=== PATIENT | male | born 1965 | race Caucasian/White ===

== ENCOUNTER → 2018-08-14 | Day surgery (SDC) | payer OTHER ==
[~2018-08-14] MED LIST: ALBUTEROL SULFATE 2.5 MG/3 ML NEBU. NEB PRN; ATROPINE 0.5 MG/5 ML DISP.SYRIN. IV PRN; IV RINGERS SOLUTION,LACTATED 1,000 ML IV SCH; LIDOCAINE 2% PF Vial for OR 5 ML VIAL. ONE; NALOXONE 0.4 MG/ML VIAL. IV PRN; OMEP20TA63 PO; ONDANSETRON PF 4 MG/2 ML VIAL. IV PRN; PROPOFOL 10,000 MCG/ML (20ML) VIAL IV ONE; PROPOFOL 40 ML IV ONE; SIMV10TA PO; VALS40TA2 PO
[2018-08-14 14:15] VITALS: BP 108/80
== END | disposition home or self-care (01) ==
LOC: SURG 11:55
PROVIDERS: ATTEND Surgery
DX: Z12.11 Encounter for screening for malignant neoplasm of colon (principal); K63.89 Other specified diseases of intestine; I10 Essential (primary) hypertension; K21.9 Gastro-esophageal reflux disease without esophagitis; E89.0 Postprocedural hypothyroidism; Z88.0 Allergy status to penicillin; Z88.2 Allergy status to sulfonamides; Z79.899 Other long term (current) drug therapy; Z98.890 Other specified postprocedural states
CPT/HCPCS: 45378; J2704; J2001

== ENCOUNTER 2021-02-19 14:20 | Emergency (ER) | payer OTHER ==
[~2021-02-19] VITALS: Ht 177.8 cm; Wt 95.4 kg
[~2021-02-19 14:20] MED LIST changes: -ALBUTEROL SULFATE 2.5 MG/3 ML NEBU. NEB PRN; -ATROPINE 0.5 MG/5 ML DISP.SYRIN. IV PRN; -IV RINGERS SOLUTION,LACTATED 1,000 ML IV SCH; -LIDOCAINE 2% PF Vial for OR 5 ML VIAL. ONE; -NALOXONE 0.4 MG/ML VIAL. IV PRN; -ONDANSETRON PF 4 MG/2 ML VIAL. IV PRN; -PROPOFOL 10,000 MCG/ML (20ML) VIAL IV ONE; -PROPOFOL 40 ML IV ONE
--- NOTE | 2021-02-19 14:56 | PHYS DOC ---
Past History Past Medical History: A-Fib, GERD, Hypertension Past Surgical History: Other Additional Past Surgical Histo: skin graft, parathyroid, left thumb Alcohol Use: Occasionally Adult General Chief Complaint Chief Complaint: Palpitations HPI HPI Patient is a 55-year-old male presenting for palpitations. This is an acute on chronic issue. Reports he really started to become symptomatic for the last 2 or 3 weeks. Symptoms are mostly present at night, patient is unsure if he notices this more when he is not physically active and at the end of his day or not. Nothing known makes better or worse. Denies any actual chest pain. Has history of palpitations in the past, had prior history of stress test and heart cath performed in 2014 without any intervention or obvious CAD. Patient reports being at baseline health, had Wellbutrin prescribed approximately 2 months ago and states symptoms started approximately 5 or 6 weeks after initiation so he is unsure if that medication could be causing his symptoms. He contacted his primary care physician today to review feelings of palpitations and it was advised he present to our ER for evaluation Review of Systems Review of Systems Fourteen body systems of review of systems have been reviewed. See HPI for pertinent positives and negative responses, other martinez all other systems are negative, non-pertinent or non-contributory Allergies Allergies Allergies Coded Allergies Type Severity Reaction Last Updated Verified Penicillins Allergy Unknown 05/03/18 Yes Sulfa (Sulfonamide Antibiotics) Allergy Unknown 05/03/18 Yes Physical Exam Physical Exam Constitutional: Well developed, well nourished, no acute distress, non-toxic appearance. HENT: Normocephalic, atraumatic, bilateral external ears normal, oropharynx moist, no oral exudates, nose normal. Eyes: PERRLA, EOMI, conjunctiva normal, no discharge. Neck: Normal range of motion, no tenderness, supple, no stridor. Cardiovascular: Heart rate regular, sinus rhythm, no murmurs rubs or gallops Lungs & Thorax: Bilateral breath sounds clear to auscultation Abdomen: Bowel sounds normal, soft, no tenderness, no masses, no pulsatile masses. Nonsurgical abdomen, no peritoneal signs Skin: Warm, dry, no erythema, no rash. Back: No tenderness, no CVA tenderness. Extremities: No tenderness, no cyanosis, no clubbing, ROM intact, no edema. Neurologic: Alert and oriented X 3, grossly normal motor & sensory function, no focal deficits noted. Psychologic: Affect normal, judgement normal, mood normal. Current Patient Data Vital Signs Vital Signs Date Time Temp Pulse Resp B/P (MAP) Pulse Ox O2 Delivery O2 Flow Rate FiO2 02/19/21 14:25 98.2 91 16 148/75 (99) 96 Room Air Lab Results Laboratory Tests Test 02/19/21 14:35 White Blood Count 11.5 x10^3/uL Red Blood Count 4.85 x10^6/uL Hemoglobin 14.7 g/dL Hematocrit 43.8 % Mean Corpuscular Volume 90 fL Mean Corpuscular Hemoglobin 30 pg Mean Corpuscular Hemoglobin Concent 34 g/dL Red Cell Distribution Width 13.0 % Platelet Count 190 x10^3/uL Neutrophils (%) (Auto) 76 % Lymphocytes (%) (Auto) 15 % Monocytes (%) (Auto) 7 % Eosinophils (%) (Auto) 1 % Basophils (%) (Auto) 0 % Neutrophils # (Auto) 8.8 x10^3uL Lymphocytes # (Auto) 1.8 x10^3/uL Monocytes # (Auto) 0.8 x10^3/uL Eosinophils # (Auto) 0.1 x10^3/uL Basophils # (Auto) 0.1 x10^3/uL Sodium Level 140 mmol/L Potassium Level 4.1 mmol/L Chloride Level 104 mmol/L Carbon Dioxide Level 24 mmol/L Anion Gap 12 Blood Urea Nitrogen 19 mg/dL Creatinine 1.0 mg/dL Estimated GFR (Cockcroft-Gault) 78.2 Glucose Level 123 mg/dL Calcium Level 8.9 mg/dL Magnesium Level 2.0 mg/dL Troponin I Quantitative < 0.017 ng/mL Current Medications Medications (Trade) Dose Ordered Sig/Lenore Route PRN Reason Start Time Stop Time Status Last Admin Dose Admin Aspirin (Emeka Aspirin) 325 mg 1X ONCE PO 02/19/21 15:00 02/19/21 15:01 DC EKG EKG EKG ordered and interpreted by myself 1435 hrs. as sinus tachycardia at 104 bpm, unremarkable intervals, left axis deviation, no acute ischemic findings but there is several PVCs present, no STEMI Radiology/Procedures Radiology/Procedures INDICATION: Reason: palpitations / Spl. Instructions: / History: COMPARISON: None. FINDINGS: Single view of chest obtained. Hypertrophic changes at the bilateral acromioclavicular joints. Hypoexpanded examination of the lungs. Cardiac silhouette is unremarkable given portable technique. A well-defined focal airspace consolidation is not seen IMPRESSION: * No focal airspace consolidation. Electronically signed by: Evelio Ndiaye MD (02/19/2021 3:18 PM) [id number] Heart Score C/O Chest Pain: No HEART Score for Chest Pain: HEART Score for Chest Pain Response (Comments) Value History Moderately Suspicious 1 ECG Nonspecific Repolarizatio 1 Age >45 - < 65 1 Risk Factors 1 or 2 Risk Factors 1 Troponin < Normal Limit 0 Total 4 Risk Factors: Risk Factors: DM, Current or recent (<one month) smoker, HTN, HLP, family history of CAD, obesity. Risk Scores: Risk Factors: DM, Current or recent (<one month) smoker, HTN, HLP, family history of CAD, obesity. Course & Med Decision Making Course & Med Decision Making ABCs unremarkable. I disclosed entirety of ER findings and discussed most likely diagnosis of palpitations of unknown source. I contacted on-call blanket weaver at [facility] and reviewed case at length, it was recommended to start patient on low-dose beta-adilson such as metoprolol 25 mg twice daily and have patient follow-up in outpatient setting within a week. Patient's contact information given to blanket weaver so outpatient recording monitor could be sent to him for use prior to outpatient follow-up. I disclosed entirety of conversation with blanket weaver patient and disclosed proposed plan of care, he was amenable. As such, I stressed need for close outpatient follow-up to review today's ER visit. Strict return precautions were also discussed at length with good understanding by patient. Patient voiced understanding and agreement with the plan. Patient knows to come back for repeat evaluation if concerning signs or symptoms present prior to outpatient follow-up. Hemodynamically stable, ambulatory and well-appearing at time of disposition. Dragon Disclaimer Dragon Disclaimer This electronic medical record was generated, in whole or in part, using a voice recognition dictation system. Departure Departure: Impression: Primary Impression: Palpitations Disposition: HOME / SELF CARE / HOMELESS Condition: STABLE Referrals: ODIN COBURN MD (PCP) YARELY BERGERON MD Patient Instructions: Palpitations Additional Instructions: As discussed prior to ER departure, your vital signs, physical exam and comprehensive diagnostic ER work-up was nonconcerning for any emergent or surgical issues. As disclosed, I reviewed potential need for hospitalization with you at length. I contacted the on-call blanket weaver, Dr. Bergeron, whose contact information is attached to this discharge packet recommended we administer a low-dose beta-adilson medication which should suppress your palpitations. He would like to see you in his office next week and will be contacting you regarding an event monitor. In the interim, if any concerning signs or symptoms arise prior to outpatient follow-up please do not hesitate to come back for repeat evaluation. If any concerning signs or symptoms present prior to outpatient follow-up please do not hesitate to come back for repeat evaluation. It was a pleasure to take care of you and I wish you the best going forward Scripts Metoprolol Tartrate (METOPROLOL TARTRATE) 25 Mg Tablet 1 TAB PO BID for palpitations, #60 TAB 0 Refills Prov: AMNA HILTON DO 02/19/21 AMNA HILTON DO Feb 19, 2021 14:56
[2021-02-19] MEDS ORDERED: ASPIRIN 325 MG TABLET PO ONE (15:00)
[2021-02-19 15:15] LABS: CALCIUM 8.9 mg/dL (8.5-10.1); GFR 78.2; POTASSIUM 4.1 mmol/L (3.5-5.1)
[2021-02-19 15:17] LABS: BASO # 0.1 x10^3/uL (0.0-0.2); BASO % 0 % (0-3); EOS # 0.1 x10^3/uL (0.0-0.7); EOS % 1 % (0-3); HEMATOCRIT 43.8 % (39.0-53.0); HEMOGLOBIN 14.7 g/dL (13.0-17.5); LYMPH # 1.8 x10^3/uL (1.0-4.8); LYMPH % 15 % (24-48); MEAN CORPUSCULAR HEMOGLOBIN 30 pg (25-35); MEAN CORPUSCULAR HGB CONC 34 g/dL (31-37); MEAN CORPUSCULAR VOLUME 90 fL (79-100); MONO # 0.8 x10^3/uL (0.0-1.1); MONO % 7 % (0-9); NEUT # 8.8 x10^3uL (1.8-7.7); NEUT % 76 % (31-73); PLATELET COUNT 190 x10^3/uL (140-400); RED BLOOD COUNT 4.85 x10^6/uL (4.30-5.70); WHITE BLOOD COUNT 11.5 x10^3/uL (4.0-11.0)
--- NOTE | 2021-02-19 15:21 | RAD ---
INDICATION: Reason: palpitations / Spl. Instructions: / History: COMPARISON: None. FINDINGS: Single view of chest obtained. Hypertrophic changes at the bilateral acromioclavicular joints. Hypoexpanded examination of the lungs. Cardiac silhouette is unremarkable given portable technique. A well-defined focal airspace consolidation is not seen IMPRESSION: * No focal airspace consolidation. Electronically signed by: Evelio Ndiaye MD (02/19/2021 3:18 PM) [id number]
[2021-02-19] MEDS ORDERED: METO25TA4 PO (16:06)
[2021-02-19] MEDS ORDERED: METOPROLOL TART IMMED RELEASE 25 MG TABLET. PO ONE (16:15)
[2021-02-19 16:21] VITALS: BP 132/69
--- NOTE | 2021-02-19 22:19 | EKG ---
[address] [address] Test Date: 2021-02-19 Test Time: 14:28:03 Pat Name: JENNIFER ALONZO Department: Room: Gender: M Procurement Analyst: : 1965 Requested By: AMNA HILTON Order Number: [id number] Reading MD: Measurements Intervals [place] Rate: 104 P: 16 IN: 140 QRS: -11 QRSD: 86 T: -9 QT: 340 QTc: 447 Interpretive Statements SINUS TACHYCARDIA VENTRICULAR PREMATURE COMPLEX(ES), BIGEMINY ATRIAL PREMATURE COMPLEX(ES) LEFTWARD AXIS T ABNORMALITY IN INFERIOR LEADS ABNORMAL ECG RI6.02 No previous ECG available for comparison
== END 2021-02-19 16:31 | disposition home or self-care (01) ==
LOC: ER 14:20
DX: R00.2 Palpitations (principal); K21.9 Gastro-esophageal reflux disease without esophagitis; I10 Essential (primary) hypertension; Z88.0 Allergy status to penicillin; Z88.2 Allergy status to sulfonamides
CPT/HCPCS: 36415; 71045; 80048; 83735; 84484; 85025; 93005; 99285-25

== ENCOUNTER → 2021-04-08 | Outpatient (CLI) | payer OTHER ==
[~2021-04-08] MED LIST changes: +METO25TA4 PO; +REGADENOSON 0.4 MG/5 ML DISP.SYRIN. IV ONE
--- NOTE | 2021-04-08 12:19 | RAD ---
MR#: [id number] Date of Study: 04/08/2021 Ordering Physician: YARELY LEDEZMA, Referring Physician: DYLON MILLER Tech: THIAGO Stout APPROVED REPORT Test Type: Pharmacological Stress Nurse/Tech: THIAGO Stout Test Indications: Arrythmias Cardiac History: arrythmias Medications: see EHR Medical History: see EHR Resting ECG: SR with frequent PVCs Resting Heart Rate: 72 bpm Resting Blood Pressure: 124/80mmHg Nurse/Tech Notes Consent: The procedure was explained to the patient in lay terms. Informed consent was witnessed. Brian eout was entered into [employer]. History and Stress Test performed by THIAGO Stout Pharm. Details Pharmacologic stress testing was performed using 0.4mg per 5ml of regadenoson given intravenously ove r 7-10 seconds. There waswas nowaswas no low-level exercise performed along with the infusion POST EXERCISE Reason for Termination: Infusion complete Max HR: 120 bpm Max Blood Pressure: 117/62mmHg Blood Pressure response to exercise: Normal blood pressure response during stress. INTERPRETATION Stress EKG Conclusion: Baseline EKG showed sinus rhythm with PAC's. No ischemic changes at peak stre ss. No arrhythmias. Imaging Protocol IMAGE PROTOCOL: Rest Tc-99m/stress Tc-99m 1 day Rest: Stress: Viability: Radiopharm.Tc99m [id number] Sestamibi Labl45sPw 36mCi Duration 15min. 10min. Img Date 04/08/2021 04/08/2021 Inj-Img Pudn20ijx. 60min. Rest Admin Site:IV - Right AntecubitalAdministrator: THIAGO Stout Stress Admin Site: IV - Right AntecubitalAdministrator: THIAGO Stout STRESS DATA End Diast. Vol.117.0mlAv. Heart Rate45.0bpm End Syst. Vol.31.0mlCO Index BSA3.9L/min Myocardial Lazt108.0gEject. Efgkjxwu08.0% Stress Rates Pk. Fill Rate1.71EDV/secLVtime Pk. Fill 375.16msec Pk. Empty Rate2.40ESV/secLVtime Pk. Zwfft282.85msec 1/3 Pk. Fill0.58EDV/sec Stress Scores Regional WT1.00Summed WT11.00 Regional WM0.00Summed WM0.00 Study quality was good. Left Ventricular size was Normal at Rest and Stress. Lung uptake was . Left Ventricular ejection fraction is 71%. The rest and stress images show normal perfusion, normal contraction and thickening. LV Perf. Quant 17 Seg. SSS0.00 17 Seg. SRS0.00 17 Seg. SDS0.00 Stress Defect Extent (% LAD)0.00Rest Defect Extent (% LAD)0.00Rev. Defect Extent (% LAD)0.00 Stress Defect Extent (% LCX) 0.00Rest Defect Extent (% LCX)0.00Rev. Defect Extent (% LCX)0.00 Stress Defect Extent (% RCA)0.00Rest Defect Extent (% RCA)4.40Rev. Defect Extent (% RCA)0.00 Stress Defect Extent (% FLAKITA)0.00Rest Defect Extent (% FLAKITA)0.90Rev. Defect Extent (% FLAKITA)0.00 Conclusion 1. Regadenoson cardioisotope stress test did not show any evidence of ischemia or infarct. 2. Normal left ventricular systolic function with ejection fraction calculated at 71%. 3. Low risk for cardiac events. Signed by : Yarely Ledezma, Electronically Approved : 04/08/2021 12:18:51
== END ==
LOC: NM 07:41
PROVIDERS: ATTEND Internal Medicine Cardiovascular Disease
DX: I47.2 Ventricular tachycardia (principal)
CPT/HCPCS: 78452; 93017; A9500; J2785